=== PATIENT | female | born 1975 | race Caucasian/White ===

== ENCOUNTER 2019-05-28 13:39 | Outpatient (CLI) | payer OTHER | END 2019-05-28 13:42 | disposition home or self-care (01) | LOC: SONOGRAMA 13:39 | DX: N60.11 Diffuse cystic mastopathy of right breast (principal); N60.12 Diffuse cystic mastopathy of left breast ==

== ENCOUNTER 2020-04-28 09:29 | Outpatient (CLI) | payer OTHER | END 2020-04-28 10:01 | disposition home or self-care (01) | LOC: SONOGRAMA 09:29 | PROVIDERS: ATTEND Surgery | DX: N60.02 Solitary cyst of left breast (principal); N60.01 Solitary cyst of right breast; N64.59 Other signs and symptoms in breast ==

== ENCOUNTER 2020-08-27 13:57 | Emergency (ER) | payer OTHER ==
[~2020-08-27] VITALS: Ht 177.8 cm; Wt 77.6 kg
== END 2020-08-27 21:38 | disposition home or self-care (01) ==
LOC: ER 13:57
DX: R10.32 Left lower quadrant pain (principal)

== ENCOUNTER 2021-05-27 10:07 | Outpatient (CLI) | payer OTHER | END 2021-05-27 11:30 | disposition home or self-care (01) | LOC: PRENATAL 10:07 | PROVIDERS: ATTEND Obstetrics & Gynecology Maternal & Fetal Medicine | DX: O09.519 Supervision of elderly primigravida, unspecified trimester (principal); O98.919 Unspecified maternal infectious and parasitic disease complicating pregnancy, unspecified trimester; O09.819 Supervision of pregnancy resulting from assisted reproductive technology, unspecified trimester; O99.891 Other specified diseases and conditions complicating pregnancy ==

== ENCOUNTER 2021-10-29 09:48 | Outpatient (CLI) | payer OTHER | END 2021-10-29 11:44 | disposition home or self-care (01) | LOC: PRENATAL 09:48 | PROVIDERS: ATTEND Obstetrics & Gynecology Maternal & Fetal Medicine | DX: O36.80X0 Pregnancy with inconclusive fetal viability, not applicable or unspecified (principal); O09.529 Supervision of elderly multigravida, unspecified trimester; O09.819 Supervision of pregnancy resulting from assisted reproductive technology, unspecified trimester; O99.280 Endocrine, nutritional and metabolic diseases complicating pregnancy, unspecified trimester; Z3A.11 11 weeks gestation of pregnancy ==

== ENCOUNTER 2021-12-29 08:06 | Outpatient (CLI) | payer OTHER | END 2021-12-29 09:20 | disposition home or self-care (01) | LOC: PRENATAL 08:06 | PROVIDERS: ATTEND Obstetrics & Gynecology Maternal & Fetal Medicine | DX: O35.0XX0 Maternal care for (suspected) central nervous system malformation in fetus, not applicable or unspecified (principal); O35.3XX0 Maternal care for (suspected) damage to fetus from viral disease in mother, not applicable or unspecified; O09.529 Supervision of elderly multigravida, unspecified trimester; O09.819 Supervision of pregnancy resulting from assisted reproductive technology, unspecified trimester; O99.280 Endocrine, nutritional and metabolic diseases complicating pregnancy, unspecified trimester; Z3A.20 20 weeks gestation of pregnancy ==

== ENCOUNTER 2022-03-23 08:42 | Outpatient (CLI) | payer OTHER | END 2022-03-23 10:30 | disposition home or self-care (01) | LOC: PRENATAL 08:42 | PROVIDERS: ATTEND Obstetrics & Gynecology Maternal & Fetal Medicine | DX: O26.849 Uterine size-date discrepancy, unspecified trimester (principal); O36.8199 Decreased fetal movements, unspecified trimester, other fetus; O09.529 Supervision of elderly multigravida, unspecified trimester; O09.819 Supervision of pregnancy resulting from assisted reproductive technology, unspecified trimester; O99.280 Endocrine, nutritional and metabolic diseases complicating pregnancy, unspecified trimester; Z3A.32 32 weeks gestation of pregnancy ==

== ENCOUNTER 2022-04-26 16:19 | Inpatient (IN) | payer OTHER ==
[~2022-04-26] VITALS: Ht 177.8 cm; Wt 2.3 kg
[2022-04-26] MEDS ORDERED: PRENATABS RX T1 EACH PO (17:21)
[2022-04-26] MEDS ORDERED: SYNTHROID75 MCG PO (17:21)
[2022-04-28] MEDS ORDERED: MAXIMUM D3325 MCG (13:57)
[2022-04-28] MEDS ORDERED: VALACYCLOVIR1000 MG (13:57)
[2022-05-02] MEDS ORDERED: SURFAK240 M1 PO (08:49)
[2022-05-02] MEDS ORDERED: PERCOCET 5-3251 EACH PO (08:49)
== END 2022-05-02 16:18 | disposition home or self-care (01) | DRG 788 ==
LOC: OB/GYN 16:19 → LDR 16:19 → OB/GYN 04-28 00:53
PROVIDERS: ADMIT Obstetrics & Gynecology; ATTEND Obstetrics & Gynecology
PROC: 3E0P7VZ Introduction of Hormone into Female Reproductive, Via Natural or Artificial Opening (ICD-10-PCS; 2022-04-26)
PROC: 4A1HXCZ Monitoring of Products of Conception, Cardiac Rate, External Approach (ICD-10-PCS; 2022-04-26)
PROC: 3E033VJ Introduction of Other Hormone into Peripheral Vein, Percutaneous Approach (ICD-10-PCS; 2022-04-27)
PROC: 10D00Z1 Extraction of Products of Conception, Low, Open Approach (ICD-10-PCS; principal; 2022-04-28)
DX: O14.04 Mild to moderate pre-eclampsia, complicating childbirth (principal); Z3A.37 37 weeks gestation of pregnancy; Z37.0 Single live birth; Z20.822 Contact with and (suspected) exposure to COVID-19

== ENCOUNTER → 2024-04-26 07:34 | Outpatient (CLI) | payer OTHER ==
[~2024-04-26 07:34] MED LIST: MAXIMUM D3325 MCG; PERCOCET 5-3251 EACH PO; PRENATABS RX T1 EACH PO; SURFAK240 M1 PO; SYNTHROID75 MCG PO; VALACYCLOVIR1000 MG
== END | disposition home or self-care (01) ==
LOC: PRENATAL 07:34
PROVIDERS: ATTEND Obstetrics & Gynecology Maternal & Fetal Medicine
DX: O36.80X0 Pregnancy with inconclusive fetal viability, not applicable or unspecified (principal); Z36.82 Encounter for antenatal screening for nuchal translucency; O09.529 Supervision of elderly multigravida, unspecified trimester; O34.219 Maternal care for unspecified type scar from previous cesarean delivery; O09.819 Supervision of pregnancy resulting from assisted reproductive technology, unspecified trimester; Z3A.14 14 weeks gestation of pregnancy

== ENCOUNTER 2024-06-05 08:10 | Outpatient (CLI) | payer OTHER | END 2024-06-05 08:11 | disposition home or self-care (01) | LOC: PRENATAL 08:10 | PROVIDERS: ATTEND Obstetrics & Gynecology Maternal & Fetal Medicine | DX: O44.00 Complete placenta previa NOS or without hemorrhage, unspecified trimester (principal); O09.529 Supervision of elderly multigravida, unspecified trimester; O34.219 Maternal care for unspecified type scar from previous cesarean delivery; O09.819 Supervision of pregnancy resulting from assisted reproductive technology, unspecified trimester; O99.280 Endocrine, nutritional and metabolic diseases complicating pregnancy, unspecified trimester; O34.10 Maternal care for benign tumor of corpus uteri, unspecified trimester; Z3A.21 21 weeks gestation of pregnancy ==

== ENCOUNTER 2024-08-07 09:54 | Outpatient (CLI) | payer OTHER | END 2024-08-07 10:01 | disposition home or self-care (01) | LOC: PRENATAL 09:54 | PROVIDERS: ATTEND Obstetrics & Gynecology Maternal & Fetal Medicine | DX: O26.849 Uterine size-date discrepancy, unspecified trimester (principal); O09.529 Supervision of elderly multigravida, unspecified trimester; O34.219 Maternal care for unspecified type scar from previous cesarean delivery; O99.280 Endocrine, nutritional and metabolic diseases complicating pregnancy, unspecified trimester; O34.10 Maternal care for benign tumor of corpus uteri, unspecified trimester; Z3A.30 30 weeks gestation of pregnancy ==

== ENCOUNTER → 2024-09-18 08:21 | Outpatient (CLI) | payer OTHER | END | disposition home or self-care (01) | LOC: PRENATAL 08:21 | PROVIDERS: ATTEND Obstetrics & Gynecology Maternal & Fetal Medicine | DX: O26.849 Uterine size-date discrepancy, unspecified trimester (principal); O36.8199 Decreased fetal movements, unspecified trimester, other fetus; O09.529 Supervision of elderly multigravida, unspecified trimester; O34.219 Maternal care for unspecified type scar from previous cesarean delivery; O09.819 Supervision of pregnancy resulting from assisted reproductive technology, unspecified trimester; O99.280 Endocrine, nutritional and metabolic diseases complicating pregnancy, unspecified trimester; O34.10 Maternal care for benign tumor of corpus uteri, unspecified trimester; Z3A.35 35 weeks gestation of pregnancy ==

== ENCOUNTER 2024-10-04 08:45 | Inpatient (IN) | payer OTHER ==
[~2024-10-04] VITALS: Ht 177.8 cm; Wt 3.2 kg
[2024-10-04 09:50] LABS: URINE APPEARANCE Clear; URINE BILIRRUBIN Negative (NEGATIVE); URINE BLOOD Negative; URINE COLOR Yellow; URINE GLUCOSE Negative (NEGATIVE); URINE KETONE 15 (NEGATIVE); URINE LEUKOCYTE Small; URINE NITRATE Negative; URINE PROTEIN Trace (NEGATIVE); URINE UROBILINOGEN 0.2 E.U./dl
[2024-10-04 09:50] LABS: BASO % 0.5 % (0.1-1.2); EOS # 0.81 (0.04-0.54); EOS % 5.5 % (0.7-7.0); LYMPH # 1.80 (1.18-3.74); LYMPH % 12.2 % (19.3-53.1); MEAN PLATELET VOLUME 11.60 fl (9.4-12.4); MONO # 0.95 (0.24-0.82); MONO % 6.4 % (4.7-12.5); NEUT # 11.02 (1.56-6.13); NEUT % 74.4 % (34.0-71.1); RED CELL DISTRIBUTION WIDTH 15.2 % (11.6-14.4)
[2024-10-04 09:51] LABS: URINE BACTERIA 387.9 uL (0.0-1933); URINE EPITHELIAL CELLS 80.0 uL (0.0-38.8); URINE RBC 8.6 uL (0.0-20.8); URINE WBC 20.5 uL (0.0-23.2)
[2024-10-04 09:53] LABS: URINE CAST 0.29 uL (0.0-1.40)
[2024-10-04 10:11] LABS: INR 0.96
[2024-10-04 10:58] LABS: ALT/SGPT 22.0 U/L (12-78); AST/SGOT 21.0 U/L (15-37); BILIRUBIN TOTAL 0.5 mg/dL (0.3-1.2); BUN CREA RATIO 13.0 (7.0-25.0); CREATININE SERUM 0.7 mg/dL (0.55-1.02); GFR 88.22; GLOBULINA 4.1 G/DL (2.4-3.5); GLUCOSE FASTING 85.0 mg/dL (65-100); OSMOLALITY SERUM 279.0 MOSM/KG (275-295)
[2024-10-15 06:10] VITALS: BP 123/71
[2024-10-15] MEDS ORDERED: LEVO-T100 MCG PO (06:14)
[2024-10-15] MEDS ORDERED: OXYTOCIN 20 UNITS/1000ML RL PIGGYBAG IV ONE (08:00)
[2024-10-15] MEDS ORDERED: ERYTHROMYCIN BASE OPHT 1GM EACH TUBE OP ONE (08:00)
[2024-10-15] MEDS ORDERED: CEFAZOLIN SODIUM 1,000 MG VIAL IV ONE (08:00)
[2024-10-15] MEDS ORDERED: PROMETHAZINE HCL 25 MG/ML AMPUL IM PRN (10:15)
[2024-10-15] MEDS ORDERED: MORPHINE SULFATE 4 MG/ML CARTRIDGE IV PRN (10:15)
[2024-10-15] MEDS ORDERED: MORPHINE SULFATE 4 MG/ML VIAL IV ONE (10:30)
[2024-10-15] MEDS ORDERED: OXYTOCIN 1,000 ML IV SCH (10:30)
[2024-10-15 11:39] VITALS: BP 117/72
[2024-10-15 15:41] VITALS: BP 105/68
[2024-10-15] MEDS ORDERED: SIMETHICONE 125 MG CAPSULE PO SCH (18:00)
[2024-10-15 19:00] VITALS: BP 106/61
[2024-10-16 01:00] VITALS: BP 120/77
[2024-10-16 06:00] VITALS: BP 123/77
[2024-10-16] MEDS ORDERED: LEVOTHYROXINE SODIUM 88 MCG TABLET PO SCH (06:00)
[2024-10-16 06:01] LABS: BASO % 0.4 % (0.1-1.2); EOS # 0.57 (0.04-0.54); EOS % 4.2 % (0.7-7.0); LYMPH # 1.42 (1.18-3.74); LYMPH % 10.5 % (19.3-53.1); MEAN PLATELET VOLUME 12.10 fl (9.4-12.4); MONO # 0.78 (0.24-0.82); MONO % 5.8 % (4.7-12.5); NEUT # 10.58 (1.56-6.13); NEUT % 78.6 % (34.0-71.1); RED CELL DISTRIBUTION WIDTH 15.3 % (11.6-14.4)
[2024-10-16 08:37] VITALS: BP 130/82
[2024-10-16] MEDS ORDERED: OxyCODONE HCL 5 MG TABLET (ROXICODONE) PO PRN (09:00)
[2024-10-16] MEDS ORDERED: DOCUSATE SODIUM 100MG CAP PO SCH (09:00)
[2024-10-16] MEDS ORDERED: ACETAMINOPHEN 325 MG TABLET PO SCH (09:00)
[2024-10-16] MEDS ORDERED: PNV,CALCIUM 72/IRON/FOLIC ACID 1 TAB TABLET PO SCH (09:00)
[2024-10-16 13:34] VITALS: BP 124/70
[2024-10-16 16:23] VITALS: BP 131/84
[2024-10-16] MEDS ORDERED: ONDANSETRON 4 MG TAB.RAPDIS PO PRN (23:30)
[2024-10-17] VITALS: BP 127/74
[2024-10-17 09:01] VITALS: BP 125/78
== END 2024-10-17 14:16 | disposition home or self-care (01) | DRG 788 ==
LOC: OB/GYN 10-15 07:00 → O/R 10-15 08:25 → OB/GYN 10-15 08:45
PROVIDERS: ADMIT Obstetrics & Gynecology; ATTEND Obstetrics & Gynecology
PROC: 4A1HXCZ Monitoring of Products of Conception, Cardiac Rate, External Approach (ICD-10-PCS; 2024-10-15)
PROC: 10D00Z1 Extraction of Products of Conception, Low, Open Approach (ICD-10-PCS; principal; 2024-10-15 07:00)
DX: O34.211 Maternal care for low transverse scar from previous cesarean delivery (principal); Z3A.39 39 weeks gestation of pregnancy; Z37.0 Single live birth